=== PATIENT | female | born 1930 | race Caucasian/White ===

== ENCOUNTER → 2017-02-13 | Outpatient (CLI) | payer OTHER ==
[~2017-02-13] MED LIST: CENTRUM SILV1 TABLET PO; CIPRO500 MG PO; CLARITIN10 MG PO; CRANBERRY 6,001 EACH PO; CRESTOR5 MG PO; DEXILANT60 MG PO; FERROUS SULFAT325 MG PO; FIBERCON625 MG PO; FORTICAL3.7 ML ALT NARES; GABAPENTIN300 MG PO; IMODIUM MS REL1 EACH PO; KEFLEX500 MG PO; OMEGA 3 500 SO1 EACH PO; PLAVIX75 MG PO; PROBIOTIC1 EAC1 PO; ROBAXIN750 MG PO; TYLENOL REGULA325 MG PO; VITAMIN B12-FO1 EACH PO; VITAMIN C W/AC500 M1 PO; VITAMIN D400 UNI1 PO
== END | disposition home or self-care (01) ==
LOC: RAD 13:38 → EDSTATUS 14:00 → RAD 14:00
DX: Z93.6 Other artificial openings of urinary tract status (principal)
CPT/HCPCS: 50435; C1769

== ENCOUNTER → 2017-05-04 | Outpatient (CLI) | payer OTHER | END | disposition home or self-care (01) | LOC: RAD 13:24 → EDSTATUS 13:30 | DX: Z93.6 Other artificial openings of urinary tract status (principal) | CPT/HCPCS: 50435; 75984; C1725; C1769 ==

== ENCOUNTER → 2017-06-12 | Outpatient (CLI) | payer OTHER | END | disposition home or self-care (01) | LOC: RAD 14:45 → EDSTATUS 15:00 | PROC: 0T9100Z Drainage of Left Kidney with Drainage Device, Open Approach (ICD-10-PCS; principal; 2017-06-12) | DX: Z43.6 Encounter for attention to other artificial openings of urinary tract (principal) | CPT/HCPCS: 50435; C1725; C1769 ==

== ENCOUNTER → 2017-06-20 | Outpatient (CLI) | payer OTHER | END | disposition home or self-care (01) | LOC: EDSTATUS 06-19 15:00 → RAD 06-19 15:00 | DX: Z93.6 Other artificial openings of urinary tract status (principal); C55 Malignant neoplasm of uterus, part unspecified | CPT/HCPCS: 76000 ==

== ENCOUNTER → 2017-07-26 | Outpatient (CLI) | payer OTHER ==
[~2017-07-26] MED LIST changes: +PANTOPRAZOLE SO40 MG PO; +VITAMIN B-6100 MG PO; +VITAMIN D2000 UNI1 PO
== END | disposition home or self-care (01) ==
LOC: RAD 14:59 → EDSTATUS 15:00
DX: C55 Malignant neoplasm of uterus, part unspecified (principal); Z93.6 Other artificial openings of urinary tract status
CPT/HCPCS: 50435; 75984; C1769

== ENCOUNTER → 2017-07-27 | Outpatient (CLI) | payer OTHER | END | disposition home or self-care (01) | LOC: RAD 12:31 → EDSTATUS 13:00 → RAD 13:00 | DX: D39.0 Neoplasm of uncertain behavior of uterus (principal); Z93.6 Other artificial openings of urinary tract status | CPT/HCPCS: 50431; C1769 ==

== ENCOUNTER → 2017-09-13 | Outpatient (CLI) | payer OTHER | END | disposition home or self-care (01) | LOC: RAD 13:53 → EDSTATUS 14:00 → RAD 14:00 | DX: D49.59 Neoplasm of unspecified behavior of other genitourinary organ (principal); Z93.6 Other artificial openings of urinary tract status | CPT/HCPCS: 50435; C1725; C1769 ==

== ENCOUNTER → 2017-11-01 | Outpatient (CLI) | payer OTHER | END | disposition home or self-care (01) | LOC: RAD 13:46 → EDSTATUS 14:00 → RAD 14:00 | PROC: BT1FYZZ Fluoroscopy of Left Kidney, Ureter and Bladder using Other Contrast (ICD-10-PCS; principal; 2017-11-01) | PROC: 0T9430Z Drainage of Left Kidney Pelvis with Drainage Device, Percutaneous Approach (ICD-10-PCS; principal; 2017-11-01) | DX: Z93.6 Other artificial openings of urinary tract status (principal); C55 Malignant neoplasm of uterus, part unspecified | CPT/HCPCS: 50435; C1725; C1769 ==

== ENCOUNTER → 2017-12-11 | Outpatient (CLI) | payer OTHER | END | disposition home or self-care (01) | LOC: RAD 13:35 → EDSTATUS 14:00 → RAD 14:00 | DX: Z93.6 Other artificial openings of urinary tract status (principal); C55 Malignant neoplasm of uterus, part unspecified | CPT/HCPCS: 50435; 75984; C1769 ==

== ENCOUNTER → 2018-01-22 | Outpatient (CLI) | payer OTHER | END | disposition home or self-care (01) | LOC: RAD 12-25 14:00 | PROC: 079 Lymphatic and Hemic Systems, Drainage (ICD-10-PCS; principal; 2018-01-22) | PROC: BT1FYZZ Fluoroscopy of Left Kidney, Ureter and Bladder using Other Contrast (ICD-10-PCS; principal; 2018-01-22) | DX: Z85.42 Personal history of malignant neoplasm of other parts of uterus (principal); Z93.6 Other artificial openings of urinary tract status | CPT/HCPCS: 50435; C1769 ==

== ENCOUNTER → 2018-03-07 | Outpatient (CLI) | payer OTHER | END | disposition home or self-care (01) | LOC: RAD 13:36 | DX: Z93.6 Other artificial openings of urinary tract status (principal) | CPT/HCPCS: 50435; C1769 ==

== ENCOUNTER → 2018-04-18 | Outpatient (CLI) | payer OTHER | END | disposition home or self-care (01) | LOC: RAD 13:51 | DX: Z93.6 Other artificial openings of urinary tract status (principal) | CPT/HCPCS: 50435; 75984; C1729; C1769 ==